=== PATIENT | male | born 1965 | race Hispanic/Latino ===

== ENCOUNTER → 2017-12-28 | Day surgery (SDC) | payer OTHER ==
[~2017-12-28] VITALS: Ht 170.2 cm; Wt 89.4 kg
[~2017-12-28] MED LIST: ASPIRIN 325 MG TAB ONE; ATROPINE SULFATE 0.1 MG/ML 10ML SYR ONE; FENTANYL CITRATE/PF 100MCG/2 ML INJ ONE; HEPARIN 25,000 UNIT/D5W 250ML 250 ML IV SCH; HEPARIN SOD (PORCINE) 1000 UNIT/ML 30ML ONE; HEPARIN SOD/SOD CHLORIDE 1,000 ML ONE; HEPARIN SOD/SOD CHLORIDE 2,000 ML ONE; HYDRALAZINE HCL 20 MG/ML VIAL ONE; IOPAMIDOL 370 MG/ML 200 ML INFUS..BTL INJ ONE; LIDOCAINE HCL 2% LOCAL 20 ML VIAL ONE; LOSARTAN-HCTZ1 EAC2 PO; METOPROLOL SUCC50 MG PO; MIDAZOLAM HCL 2 MG/2 ML VIAL ONE; NITROGLYCERIN/D5W 200 MCG/ML 250 ML ONE; SODIUM CHLORIDE 0.9% 1000ML 1,000 ML ONE; VERAPAMIL HCL 2.5 MG/ML 2 ML VIAL ONE
[2017-12-28 07:37] VITALS: BP 184/119
[2017-12-28 08:26] LABS: BASOPHILS # (AUTO) 0.1 (0.0-0.1); EOSINOPHILS # (AUTO) 0.1 (0.0-0.4); EOSINOPHILS % 2.1 % (0.0-6.0); HEMATOCRIT 49.6 % (38.2-49.6); HEMOGLOBIN 17.4 g/dL (14.0-18.0); LYMPHOCYTES # (AUTO) 2.2 (1.0-3.2); LYMPHOCYTES % 34.5 % (18.0-39.1); MEAN CORPUSCULAR HEMOGLOBIN 30.9 pg (28-32); MEAN CORPUSCULAR HGB CONC 35.1 g/dL (31-35); MEAN CORPUSCULAR VOLUME 88.1 fL (81-99); MONOCYTES # (AUTO) 0.7 (0.2-0.8); MONOCYTES % 11.2 % (4.4-11.3); NEUTROPHILS # (AUTO) 3.2 (2.1-6.9); NEUTROPHILS % 50.7 % (38.7-80.0); PLATELET COUNT 231 x10e3/uL (140-360); RED BLOOD COUNT 5.63 x10e6/uL (4.3-5.7); RED CELL DISTRIBUTION WIDTH 12.8 % (11.7-14.4)
[2017-12-28 08:35] LABS: PROTHROMBIN TIME 12.4 seconds (11.9-14.5)
[2017-12-28 08:44] LABS: ALANINE AMINOTRANSFERASE 31 IU/L (0-55); ALBUMIN 4.2 g/dL (3.5-5.0); ALKALINE PHOSPHATASE 96 IU/L (40-150); ANION GAP 17.3 mmol/L (8-16); BLOOD UREA NITROGEN 19 mg/dL (7-26); BUN/CREATININE RATIO 25 (6-25); CALCIUM 9.7 mg/dL (8.4-10.2); CARBON DIOXIDE 24 mmol/L (22-29); CHLORIDE 102 mmol/L (98-107); CREATININE, SERUM 0.75 mg/dL (0.72-1.25); EST GLOMERULAR FILTRATION RATE > 60 ML/MIN (60-); GLUCOSE 107 mg/dL (74-118); POTASSIUM 3.3 mmol/L (3.5-5.1); SODIUM 140 mmol/L (136-145)
[2017-12-28 09:22] LABS: CHOL/HDL RATIO 5.6 (3.9-4.7); CHOLESTEROL 200 MD/DL (0-199); HDL CHOLESTEROL 36 MG/DL (40-60); LDL CHOLESTEROL 110 MG/DL (60-130); TRIGLYCERIDES 271 MG/DL (0-149)
--- NOTE | 2017-12-29 09:39 | Operative Report ---
DATE OF PROCEDURE: December 28, 2017 PROCEDURE INDICATION: Unstable angina in patient with rapidly crescendo symptoms. PROCEDURES PERFORMED: 1. Left heart catheterization. 2. Selective coronary angiography x2. 3. Left ventriculogram. 4. Left anterior descending artery drug-eluting stent percutaneous coronary intervention. 5. Intra-aortic balloon pump placement and hemodynamic support with augmentation of 1:1 heparin drip, nitroglycerin drip intravenously, management critical care time post intervention for at least 30 minutes. PROCEDURE ESTIMATED BLOOD LOSS: Less than 100 mL. PROCEDURE COMPLICATIONS: 1. Following drug-eluting stent PCI to LAD, first diagonal small caliber occlusion observed due to stent placement accross diagonal ostium in the setting of ostial disease of the small-caliber diagonal with acute sharp backwards angle on takeoff. 2. Distal to stents, the distal LAD developed vessel dissection related acute occlusion. Attempted rewiring on various attempts, advanced over the wire balloon to confirm intraluminal position, intraluminal position was not achieved in spite of multiple attempts. It was felt that wire and balloon were in dissection plane and therefore no additional balloon inflation was attempted. At this point, intra-aortic balloon pump placed, [facility] activated for emergent transfer to [facility] higher level of care for evaluation for emergent bypass. Patient was placed on BiPAP also for respiratory support given elevated LVEDP of 35 to 40 prior to development of clinical overt pulmonary edema. This assisted with patient's stabilization. Symptomatic management provided throughout patient's stay. Patient, family members, including and rest of family as well as primary care provider informed of findings and plan of care. Accepting physician confirmed patient transferred out emergently. PROCEDURE SUMMARY: After consent was obtained, patient was prepped and draped in a sterile fashion and the right radial site was locally infiltrated with 2% lidocaine. A 5-Guamanian outer diameter slender sheath was advanced and access was obtained. Initially, 3000 units of heparin, 2.5 mg of verapamil, and 300 mcg of nitroglycerin were administered via the radial sheath. For the interventional portion of the procedure, additional heparin was administered to maintain an ACT over 250 throughout. Aspirin 325 was administered. A thick catheter was advanced, this was a 5-Guamanian catheter, advanced over a wire into the proximal ascending aorta and used to cross aortic valve for hemodynamic measurements as well as to engage the left main and then the right coronary artery. After initial angiography, it was decided to proceed with intervention to the LAD which was done as will be described in a separate paragraph below. After intervention of the LAD and given acute development, it was decided to proceed with access under ultrasound guidance and with single anterior stick to the right common femoral artery and a micropuncture used, a 7-Guamanian sheath was advanced. Pigtail catheter was used to cross the aortic valve for hemodynamic measurements and left ventriculogram, and then over a wire, an intra-aortic balloon pump of 40 mL was advanced and augmentation to 1:1 initiated with heparin drip started. TR band hemostasis applied to the right radial side and patient transferred emergently via Life Flight with nitroglycerin drip to maintain systolic blood pressure less than 120, BiPAP in place. PROCEDURE FINDINGS: 1. Left main has less than 20% stenosis, is large in caliber, and gives an LAD and a circumflex. 2. There are moderate calcifications of the vessels. 3. The LAD has 70% proximal stenosis. It gives the diagonal with steep angle that is upwards in takeoff, 80% to 90% stenosis at the ostium, small in caliber, less than 2 mm. Two septal perforators arise, 1 prior to the area of stenosis and another 1 in proximity to the diagonal takeoff. Distal to the diagonal, there is 80% diffuse stenosis of long area of LAD. After this stenosis, there is a diagonal that arises as small caliber from LAD and the LAD continued to gives off multiple septal perforators as it courses to the apex where it wraps around and ends. This area of 70% proximal as well as 80% mid to distal stenosis was treated as described above. Distal to the treatment area and prior to the first diagonal vessel, it was felt postprocedure to collapse, likely resulting from edge dissection with inability to rewire and resulting in LAURA-0 flow in the apical LAD as well as LAURA-0 flow in first diagonal with otherwise LAURA-2.5 flow in the rest of LAD and septal perforators. Septal perforators were noted to give collaterals to the distal RCA which has a chronic total occlusion. 4. There is a small-caliber ramus intermedius with luminal irregularities arising from left main. 5. The circumflex gives a medium-caliber obtuse marginal that has 40% proximal stenosis and a left atrial branch and a small-caliber second obtuse marginal. 6. The right coronary artery has proximal 90%, mid 95%, and distal 100% chronic total occlusion. Distal RPDA and RPLV filled via collaterals in the left system. Using XB LAD 3.5 5-Guamanian guide catheter for engagement of left main, a Runthrough wire was used to cross the LAD, heparin to maintain an ACT over 250. Predilatation of LAD area of stenosis was performed using a [employer] Emerge 2.25 x 12 serially inflated across the target lesion. Then, attempted advancement of Synergy 2.5 x 38 mm drug-eluting stent was met with resistance, for which additional predilatation with 2.5 x 15 [employer] Emerge was performed, serially inflated 12 to 18 atmospheres across the target lesion. At this point, Synergy 2.5 x 38 drug-eluting stent was advanced and successfully positioned across the target lesion and deployed to 12 atmospheres, brought proximally and again inflated to 15 atmospheres. An overlapping [employer] Synergy 2.75 x 20 drug-eluting stent was deployed into proximal portion. With assistance of a GuideLiner due to initial difficulty in advancement, post dilatation with a 2.75 x 8 NC Quantum was performed across the overlap on proximal portion of the stented area, 12 to 15 atmospheres. The post PCI angiography revealed first small-caliber diagonal to eventually have LAURA-2 flow, 99% stenosis. Thereafter, it shut down and was 100% occluded with LAURA-0 flow. At this point, also area of severe residual stenosis distal to the stented area was observed, for which a 2.25 x 8 Synergy drug-eluting stent was attempted to advance across the stented area and into the distal segment of the stented area where the residual lesion was observed. Inability to advance stent in spite of assistance with GuideLiner was found, therefore a 2.0 x 8 Emerge balloon was used for dilatation across the area of stenosis with overall improvement with less than 30% residual stenosis and LAURA-3 flow, improvement in the apical area of LAD. After wire was brought back, additional pictures were taken demonstrating now occluded LAD distal to the stent. Of note, previous to this, attempted wiring of a diagonal was performed with a Whisper wire and also with a Runthrough wire without success. Given new observed occlusion of distal apical LAD, attempted rewiring was performed multiple times. Over the wire, balloon was advanced to confirm position of wire after advancement into the apical LAD, however, no blood return was noted, therefore concern for wire position in a dissection plane was felt to be present and therefore no additional balloon inflation is performed. At this point, decided to proceed with intra-aortic balloon pump support, nitroglycerin drip, and immediate initiation of emergent transfer for aortocoronary bypass evaluation higher level of care. CONCLUSIONS: 1. Left anterior descending artery drug-eluting stent percutaneous coronary intervention complicated with distal vessel occlusion likely resulting from distal vessel dissection. 2. [id number] severe systolic heart failure, decompensated with left ventricular end-diastolic pressure post intervention of 35 to 40, pre intervention was 12. Left ventricular pressure pre intervention was 132/8 with end-diastolic pressure of 12, aortic pressure was 134/95. 3. Left ventriculogram with 25% to 30% left ventricular systolic function with akinesis of mid to apical anterior segment and the basal to mid inferior segments being akinetic. PLAN: 1. Continue mechanical support with this intra-aortic balloon pump 1:1. 2. Emergent transfer to higher level of care for emergent evaluation for bypass for alternative revascularization strategies. 3. Continue BiPAP support given elevated LVEDP to avoid clinical overt pulmonary edema. Guarded prognosis and critical state. Job#: [id number] DR GILBERT
== END | disposition short-term general hospital (02) ==
LOC: CATH LAB 06:56
PROVIDERS: ATTEND Internal Medicine Cardiovascular Disease
DX: I25.110 Atherosclerotic heart disease of native coronary artery with unstable angina pectoris (principal); I11.0 Hypertensive heart disease with heart failure; I50.23 Acute on chronic systolic (congestive) heart failure; I25.42 Coronary artery dissection; I73.9 Peripheral vascular disease, unspecified; E66.09 Other obesity due to excess calories; Z68.31 Body mass index [BMI] 31.0-31.9, adult; Z82.49 Family history of ischemic heart disease and other diseases of the circulatory system
CPT/HCPCS: 33967; 36415; 80053; 80061; 85025; 85610; 92928; 93005; 93458; C1725; C1769; C1874; C1887; J0360; J1644; J2001; J2250; J7030; Q9967; 33970; 36140; 77002; 92920; 93452; C9600